=== PATIENT | female | born 1970 | race Caucasian/White ===

== ENCOUNTER 2016-07-08 19:11 | Emergency (ER) | payer MEDICAID ==
[~2016-07-08] VITALS: Ht 144.8 cm; Wt 79.4 kg
[2016-07-08 19:27] VITALS: BP 125/73
--- NOTE | 2016-07-08 19:40 | NUR ---
Patient ambulated to bed 06.
--- NOTE | 2016-07-08 19:45 | NUR ---
PATIENT PRESENTS TO ED WITH VAG BLEEDING X 1 DAY, PT DENIES TRAUMA TO THE AREA AND ALSO STATES SHE HAS HAD 2 MISCARRIAGES PRIOR TO THIS . PT STATES SHE IS 7 WEEKS AT THE MOMENT . SKIN IS PINK/WARM/DRY; AAOX4 WITH EVEN AND STEADY GAIT; LUNGS CLEAR BL; HR EVEN AND REGULAR; PT DENIES ANY FEVER, CP, SOB, OR COUGH AT THIS TIME; PATIENT STATES PAIN OF 4/10 AT THIS TIME; VSS; PATIENT POSITIONED FOR COMFORT; HOB ELEVATED; BEDRAILS UP X2; BED DOWN. ER MD MADE AWARE OF PT STATUS.
--- NOTE | 2016-07-08 20:01 | NUR ---
Dr. Urena evaluating patient at bedside.
--- NOTE | 2016-07-08 20:45 | NUR ---
FEMALE CHAPERONED FOR DR. MCCARTHY FOR PELVIC EXAM
[2016-07-08 21:12] LABS: BASOPHILS # (AUTO) 0.1 K/uL (0.00-0.22); BASOPHILS % (AUTO) 1.6 % (0.0-2.0); EOSINOPHILS # (AUTO) 0.2 K/uL (0-0.4); EOSINOPHILS % (AUTO) 2.3 % (0.0-4.0); HEMATOCRIT 43.4 % (36-48); LYMPHOCYTES # (AUTO) 2.3 K/uL (2.5-16.5); LYMPHOCYTES % (AUTO) 27.9 % (20.5-51.1); MEAN CORPUSCULAR HEMOGLOBIN 29 pg (27-31); MEAN CORPUSCULAR HGB CONC 32 g/dL (33-37); MEAN CORPUSCULAR VOLUME 91 fL (80-94); MONOCYTES # (AUTO) 0.7 K/uL (0.8-1.0); MONOCYTES % (AUTO) 8.3 % (1.7-9.3); NEUTROPHILS # (AUTO) 4.8 K/uL (1.8-7.7); NEUTROPHILS % (AUTO) 59.9 % (42.2-75.2); PLATELET COUNT (AUTO) 381 K/uL (140-450); RED BLOOD CELL COUNT(AUTO) 4.77 MIL/uL (4.20-5.40); RED CELL DISTRIBUTION WIDTH 13.3 % (11.6-13.7); WHITE BLOOD COUNT (AUTO) 8.1 K/uL (4.8-10.8)
--- NOTE | 2016-07-08 21:35 | NUR ---
Patient back from US via wheelchair per tech.
--- NOTE | 2016-07-08 23:14 | NUR ---
Patient discharged with v/s stable. Written and verbal after care instructions given and explained. Patient verbalized understanding. Ambulatory with steady gait. All questions addressed prior to discharge. Advised to follow up with PMD.
[2016-07-08 23:15] VITALS: BP 119/72
== END 2016-07-08 23:14 | disposition home or self-care (01) ==
LOC: MED 19:11
DX: O03.38 Urinary tract infection following incomplete spontaneous abortion (principal); O09.521 Supervision of elderly multigravida, first trimester; Z88.0 Allergy status to penicillin; Z3A.08 8 weeks gestation of pregnancy
CPT/HCPCS: 36415; 76801; 81002; 81025; 84702; 85025; 86900; 86901; 99285

== ENCOUNTER 2017-12-04 18:51 | Emergency (ER) | payer MEDICAID ==
[~2017-12-04] VITALS: Ht 149.9 cm; Wt 80.9 kg
--- NOTE | 2017-12-04 19:00 | NUR ---
47 Y/O F PRESENTS TO THE ED W/C/O RUQ ABD PAIN X4DAYS THAT RADIATED TO MID ABDOMEN TODAY. PT STATES, "IT FEELS LIKE PRESSURE." ABDOMEN IS ROUN, SOFT AND NON-TENDER UPON PALPATION. PT DENIES N/V/D; SKIN IS INTACT, PINK/WARM/DRY; AAOX4, PERRL, WITH EVEN AND STEADY GAIT; LUNGS CLEAR BL, BREATHING UNLABORED; HR EVEN AND REGULAR, BL PERIPHERAL PULSES PRESENT; BS ACTIVE X4, NO TENDERNESS TO PALPATION, NO HEPATOSPLENOMEGALLY PALPATED, RESONANT TO PERCUSSION; PT DENIES ANY FEVER, CP, SOB, OR COUGH AT THIS TIME; PT STATES 4/10 PAIN AT THIS TIME; VSS; PATIENT POSITIONED FOR COMFORT; HOB ELEVATED; BEDRAILS UP X2; BED DOWN. PT STATES, "I TOOK A LITTLE WHITE PILL BEFORE I CAME FROM MY FRIEND, I HAVE NO IDEA WHAT IT WAS BUT IT HELPED WITH MY PAIN." DR. BEVERLY MADE AWARE. DENIES [facility]
[2017-12-04 19:02] VITALS: BP 122/84
--- NOTE | 2017-12-04 19:07 | NUR ---
PT AMBULATES TO BED 2
--- NOTE | 2017-12-04 19:38 | NUR ---
Dr. Pagan evaluating patient at bedside.
--- NOTE | 2017-12-04 20:03 | NUR ---
PT RESTING IN BED COMFORTABLY WITH FAMILY AT THE BEDSIDE, SEEN SMILING AND LAUGHING. NO S/S OF DISTRESS NOTED.
[2017-12-04] MEDS ORDERED: NACL 0.9% 500 ML IV ONE (20:07)
[2017-12-04] MEDS ORDERED: ONDANSETRON 4 MG/2 ML VIAL IVP ONE (20:10)
[2017-12-04] MEDS ORDERED: KETOROLAC 30 MG/ML VIAL IVP ONE (20:10)
[2017-12-04 20:32] LABS: BASOPHILS % (AUTO) 0.3 % (0.0-2.0); EOSINOPHILS % (AUTO) 0.1 % (0.0-4.0); HEMATOCRIT 41.4 % (36-48); HEMOGLOBIN 14.1 g/dL (12.0-16.0); LYMPHOCYTES # (AUTO) 0.9 K/uL (2.5-16.5); LYMPHOCYTES % (AUTO) 11.5 % (20.5-51.1); MEAN CORPUSCULAR HEMOGLOBIN 30 pg (27-31); MEAN CORPUSCULAR HGB CONC 34 g/dL (33-37); MEAN CORPUSCULAR VOLUME 87.7 fL (80-94); MONOCYTES # (AUTO) 0.3 K/uL (0.8-1.0); MONOCYTES % (AUTO) 4.3 % (1.7-9.3); NEUTROPHILS # (AUTO) 6.4 K/uL (1.8-7.7); NEUTROPHILS % (AUTO) 83.8 % (42.2-75.2); PLATELET COUNT (AUTO) 325 K/uL (140-450); RED BLOOD CELL COUNT(AUTO) 4.72 MIL/uL (4.20-5.40); RED CELL DISTRIBUTION WIDTH 13.6 % (11.6-13.7); WHITE BLOOD COUNT (AUTO) 7.6 K/uL (4.8-10.8)
[2017-12-04 20:48] LABS: ANION GAP 11.4 (8-16); CREATININE 0.6 mg/dL (0.6-1.3); POTASSIUM 3.4 mmol/L (3.5-5.1)
[2017-12-04 20:55] LABS: ALBUMIN 3.8 g/dL (3.4-5.0); TOTAL BILIRUBIN 0.4 mg/dL (0.0-1.0)
--- NOTE | 2017-12-04 21:13 | NUR ---
PT DENIES PAIN AT THIS TIME. PT RESTING IN BED COMFORTABLY. VSS
[2017-12-04 21:57] VITALS: BP 125/69
--- NOTE | 2017-12-04 21:59 | NUR ---
Patient discharged with v/s stable. Written and verbal after care instructions given and explained. Patient alert, oriented and verbalized understanding of instructions. Ambulatory with steady gait. All questions addressed prior to discharge. ID band removed. Patient advised to follow up with PMD. Rx of LACTULOSE, MOTRIN given. Patient educated on indication of medication including possible reaction and side effects. Opportunity to ask questions provided and answered.
== END 2017-12-04 21:59 | disposition home or self-care (01) ==
LOC: MED 18:51
DX: R10.12 Left upper quadrant pain (principal); R03.0 Elevated blood-pressure reading, without diagnosis of hypertension
CPT/HCPCS: 36415; 74022; 80053; 81002; 81025; 83690; 85025; 96374; 96375; 99285; J1885; J2405; J7030